=== PATIENT | female | born 1960 | race Caucasian/White ===

== ENCOUNTER 2017-02-26 12:10 | Emergency (ER) | payer OTHER ==
[~2017-02-26] VITALS: Ht 162.6 cm; Wt 84.5 kg
[~2017-02-26 12:10] MED LIST: ACYC800T57 PO; BACTDS PO; CEPH-443 PO; GABA100C14 PO; HYDR-3498 PO; IBUP-1542 PO; IBUP800T25 PO; NAPR-260 PO
[2017-02-26 12:13] VITALS: Ht 162.6 cm; Wt 84.5 kg
--- NOTE | 2017-02-26 13:39 | RADRPT ---
PROCEDURE: XR left toes. CLINICAL INDICATION: Left fourth toe pain and trauma TECHNIQUE: 3 views of the left toes are available for review COMPARISON: 10/06/2014 the FINDINGS: There is a nondisplaced fracture at the dorsal base of the fourth distal phalanx with intra-articula r extension. Remainder of the bones appear intact. Soft tissues are within normal limits.. IMPRESSION: 1. Nondisplaced fracture at the dorsal base of the fourth distal phalanx.. RPTAT: AA .Lso Pizano MD, Date Time Electronically viewed and signed by .Los Pizano MD, on 02/26/2017 13:39 .L/
[2017-02-26] MEDS ORDERED: IBUP-1542 PO (13:47)
--- NOTE | 2017-02-26 15:07 | ERD ---
ER Documentation Chief Complaint Chief Complaint LT 4TH TOE PAIN , HIT ON CORNER OF TABLE YESTERDAY HPI 56-year-old female complaining of pain in her left fourth toe. Patient stated that she hit her toe on the leg of a table at home yesterday. Pain has been throbbing and constant. Denies any other injuries. ROS All systems reviewed and are negative except as per history of present illness. Medications Home Meds Active Scripts Ibuprofen* (Motrin*) 600 Mg Tab, 600 MG PO Q6H Y for PAIN AND OR ELEVATED TEMP, #30 TAB Prov:ALBERT WOLF [employer] 02/26/17 Ibuprofen* (Motrin*) 600 Mg Tab, 600 MG PO Q6H Y for PAIN AND OR ELEVATED TEMP, #20 TAB Prov:CHRIS CONTRERASC 09/23/15 Sulfamethoxazole-Trimethoprim* (Bactrim* DS) 800-160 Mg Tab, 1 TAB PO BID for 7 Days, TAB Prov:CHRIS CONTRERASC 09/23/15 Cephalexin* (Keflex*) 500 Mg Capsule, 500 MG PO QID for 10 Days, CAP Prov:CHRIS CONTRERASC 09/23/15 Gabapentin* (Gabapentin*) 100 Mg Capsule, 100 MG PO TID, #30 CAP Prov:LUKE URIAS PA-C 06/04/15 Naproxen* (Naprosyn*) 500 Mg Tablet, 500 MG PO BID Y for PAIN AND/OR INFLAMMATION, #30 TAB Prov:COLTON HIGGINS PA-C 05/20/15 Hydrocodone Bit-Acetaminophen* (Valmeyer*) 5-325 Mg Tab, 1 TAB PO Q6 Y for PAIN, # 10 TAB Prov:COLTON HIGGINSC 05/20/15 Acyclovir* (Zovirax*) 800 Mg Tablet, 800 MG PO 5 TIMES DAILY for 7 Days, TAB Prov:COLTON HIGGINSC 05/20/15 Cephalexin* (Keflex*) 500 Mg Capsule, 500 MG PO QID for 7 Days, CAP Prov:SYDNIE ESCOBEDO DO 11/04/14 Sulfamethoxazole-Trimethoprim* (Bactrim* DS) 800-160 Mg Tab, 1 TAB PO BID for 7 Days, TAB Prov:SYDNIE ESCOBEDO DO 11/04/14 Ibuprofen* (Motrin*) 800 Mg Tab, 800 MG PO Q8 Y for PAIN, #30 TAB Prov:AYDE BENEDICT 10/06/14 Allergies Allergies: Coded Allergies: No Known Allergy (Unverified , 11/04/14) PMhx/Soc History of Surgery: Yes (NASAL SURGERY) Anesthesia Reaction: No Hx Neurological Disorder: No Hx Respiratory Disorders: No Hx Cardiac Disorders: No Hx Psychiatric Problems: No Hx Miscellaneous Medical Probl: Yes (HX OF HYPERTHYROID,NOT ON MEDS AT PRESENT) Hx Alcohol Use: No Hx Substance Use: No Hx Tobacco Use: No Smoking Status: Never smoker Physical Exam Vitals Vital Signs Date Time Temp Pulse Resp B/P Pulse Ox O2 Delivery O2 Flow Rate FiO2 02/26/17 12:13 97.9 102 16 152/84 98 Physical Exam General: Well-developed, well-nourished, conscious and coherent, in no distress Skin: Warm and dry without rash, good texture and turgor Head: Normocephalic without evidence of trauma Eyes: Sclera and conjunctivae normal; pupils equal, round, and reactive to light; extraocular movements are intact Chest: Normal AP diameter. Good expansion without retractions. Nontender. Lungs are clear to auscultate bilaterally with good tidal volume Heart: Regular rate and rhythm. No murmur, rub, or gallops heard Extremities: Ecchymosis noted in the distal phalanx of the left fourth toe, tender at the PIP joint. Full range of motion. Good strength bilaterally. No clubbing, cyanosis, or edema. Peripheral pulses are intact. Sensation intact Neuro: Alert and oriented 4, GCS 15. Cranial nerves grossly intact. Motor and sensory exams nonfocal. Moves all extremities. Speech clear. Gait normal Results 24 hrs PROCEDURE: XR left toes. CLINICAL INDICATION: Left fourth toe pain and trauma TECHNIQUE: 3 views of the left toes are available for review COMPARISON: 10/06/2014 the FINDINGS: There is a nondisplaced fracture at the dorsal base of the fourth distal phalanx with intra-articular extension. Remainder of the bones appear intact. Soft tissues are within normal limits.. IMPRESSION: 1. Nondisplaced fracture at the dorsal base of the fourth distal phalanx.. RPTAT: AA .Los Pizano MD, MD Date Time Electronically viewed and signed by .Los Pizano MD, MD on 02/26/2017 13:39 .L/ CC: ALBERT WOLF [employer] Procedures/MDM 56-year-old female presented ED with left fourth toe pain after injury yesterday. X-ray of the left fourth toe showed a nondisplaced fracture of the distal phalanx. The area of injury was immobilized with a deepthi tape splint and orthoshoe. Patient was noted to be comfortable and neurovascularly intact both before and after the immobilization. Patient appears well, stable for discharge and outpatient management. Medical decision making shared with patient and family. Education provided to patient and family. Patient and family expressed understanding of the plan. Medications on discharge: Ibuprofen. Follow-up: Primary care provider in 2-3 days or return to ED if worse. Disclaimer: Inadvertent spelling and grammatical errors are likely due to EHR/ dictation software use and do not reflect on the overall quality of patient care. Also, please note that the electronic time recorded on this note does not necessarily reflect the actual time of the patient encounter. Departure Diagnosis: Primary Impression: Fracture, toe Condition: Stable Patient Instructions: Fracture, Toe [Closed] Additional Instructions: Call your primary care doctor TOMORROW for an appointment during the next 1 WEEK.Tell the medical office secretary that you were referred from this facility.See the doctor sooner or return here if your condition worsens before your appointment time. ALBERT WOLF NP Feb 26, 2017 15:07
== END 2017-02-26 13:58 | disposition home or self-care (01) ==
LOC: FTE 12:10
DX: S92.535A Nondisplaced fracture of distal phalanx of left lesser toe(s), initial encounter for closed fracture (principal); W22.8XXA Striking against or struck by other objects, initial encounter; Y92.009 Unspecified place in unspecified non-institutional (private) residence as the place of occurrence of the external cause
CPT/HCPCS: 73660; L3260; Z7502

== ENCOUNTER 2017-10-16 18:53 | Emergency (ER) | END 2017-10-16 20:30 | disposition home or self-care (01) ==

== ENCOUNTER 2017-11-19 10:00 | Emergency (ER) | END 2017-11-19 12:25 | disposition home or self-care (01) ==